=== PATIENT | female | born 1950 | race Caucasian/White ===

== ENCOUNTER 2023-04-28 13:16 | Outpatient (AMB) | payer MEDICARE, SELFPAY ==
[2023-04-28 13:22] VITALS: BP 144/78; PULSE 70; O2SAT 99; BMI 27.1
--- NOTE | 2023-04-28 13:22 | MHC.OFFVIS ---
Intake Vital Signs 04/28/23 13:22 Height 5 ft 1 in Weight 143 lb 4.807 oz BMI 27.1 BP 144/78 H Blood Pressure Location Rt brachial Position Sitting Pulse 70 Pulse Source Pulse Oximeter Pulse Oximetry (%) 99 Oxygen Delivery Method Room Air Intake Visit Reasons: ILD Allergies acetaminophen [From Percocet] Adverse Reaction (Verified 04/28/23 13:28) Vomiting oxycodone [From Percocet] Adverse Reaction (Verified 04/28/23 13:28) Vomiting Sulfur Adverse Reaction (Uncoded 04/28/23 13:28) Hives HPI HPI Comments History of Present Illness Details The patient is here for pulmonary evaluation. The patient is a 72 year woman with a known history tobacco dependency was being evaluated for underlying respiratory disease. She had undergoing a CT scan of the chest back in 2021 at [facility] which I personally reviewed. It demonstrated multiple pulmonary nodules subsided nature. The patient also had some subpleural interstitial changes suggesting some mild interstitial lung disease. For respiratory status the patient has been doing fairly well. She does not use any inhalers. The patient does have mild dyspnea on exertion. Does get better with rest. She did undergo pulmonary function studies in the fall of 2022 which I personally reviewed further. The patient does not have evidence of COPD, although, appears to have an obstructive physiology and evidence of air trapping. The patient has used inhalers in the past specially when she was sick and explained to her that during those locations she may indeed developing increasing bronchospasms. Brovana the patient is doing fairly well and does not want to use any inhalers. She did show me her fit bit report. Her heart rate has been significantly elevated while sleeping. Sometimes going up to the 120s and 130s while sleeping at nighttime she does have daytime drowsiness with an [place] score elevated at 10 over 24. the patient has never had any evaluation for sleep apnea. She is scheduled to see a asphalt patcher. At this point I do believe that based on her ongoing symptoms that she should have a home sleep study. [facility] Medical History (Updated 04/28/23 @ 21:02 by Salomon Burger MD) ILD (interstitial lung disease) Palpitations Pulmonary nodule Review of Systems Const Reports daytime sleepiness, Reports difficulty sleeping, Denies fever(s), Reports headache(s) and Reports snoring Eyes Reports no additional complaints ENT Reports no additional complaints and Reports headache(s) Card Denies chest pain, Reports palpitations and Reports dyspnea on exertion Resp Reports dyspnea on exertion, Reports snoring and Denies wheezing GI Reports no additional complaints Musc Reports no additional complaints Skin/Breast Denies rash Neuro Reports no additional complaints and Reports headache(s) Endo Reports palpitations [place]/Lymph Denies easy bruising and Denies lymphadenopathy Aller/Immun Denies wheezing Physical Exam Vital Signs: Last Vital Signs Pulse 70 04/28/23 13:22 BP 144/78 H 04/28/23 13:22 Pulse Ox 99 04/28/23 13:22 Oxygen Delivery Method Room Air 04/28/23 13:22 BMI result Body Mass Index 27.1 Const General: comfortable HEENT Head: Yes normocephalic Neck Neck: Yes supple Chest Chest palpation & inspection: normal inspection of the chest Resp Effort & Inspection: normal respiratory effort Auscultation: clear to auscultation bilaterally Cardio Heart sounds: S1 normal heart sound present and S2 normal heart sound present GI Palpation (GI): Soft to palpation Skin General skin exam: no rashes or lesions noted Extrem General: Yes no clubbing, cyanosis or edema Assessment & Plan Assessment & Plan (1) Pulmonary nodule: Comment: high risk due to smoking history Code(s): R91.1 - Solitary pulmonary nodule (2) Palpitations: Code(s): R00.2 - Palpitations (3) ENRIQUE (obstructive sleep apnea): Code(s): G47.33 - Obstructive sleep apnea (adult) (pediatric) (4) ILD (interstitial lung disease): Code(s): J84.9 - Interstitial pulmonary disease, unspecified Plan Repeat CT chest home PSG F/U 2-3 months Coding Level of Care Code New Pt Level 4 (22589) Diagnoses Pulmonary nodule R91.1 Palpitations R00.2 ENRIQUE (obstructive sleep apnea) G47.33 ILD (interstitial lung disease) J84.9 Time Spent (min) 40
== END 2023-04-28 14:02 | disposition home or self-care (01) ==
PROVIDERS: PCP Internal Medicine; Visit Provider Hospitalist
DX: R91.1 Solitary pulmonary nodule (principal); R00.2 Palpitations; G47.33 Obstructive sleep apnea (adult) (pediatric); J84.9 Interstitial pulmonary disease, unspecified
CPT/HCPCS: 99204

== ENCOUNTER → 2023-04-28 13:16 | Outpatient (BNVA) | payer MEDICARE, SELFPAY | PROVIDERS: PCP Internal Medicine; Visit Provider Hospitalist | DX: R91.1 Solitary pulmonary nodule (principal); R00.2 Palpitations; G47.33 Obstructive sleep apnea (adult) (pediatric); J84.9 Interstitial pulmonary disease, unspecified | CPT/HCPCS: 99202 ==

== ENCOUNTER 2023-06-12 13:44 | Outpatient (AMB) | payer MEDICARE, SELFPAY ==
--- NOTE | 2023-06-12 13:54 | A.OFFVIS_ITS ---
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/ Transferring care/Blockage Artery Intake Note: New patient hx blockage artery transferring feeling good Triage Assistant Required: No Wireless Sales Consultant: Wireless Sales Consultant Present Accompanied by: Spouse Allergies acetaminophen [From Percocet] Adverse Reaction (Verified 04/28/23 13:28) Vomiting oxycodone [From Percocet] Adverse Reaction (Verified 04/28/23 13:28) Vomiting Sulfur Adverse Reaction (Uncoded 04/28/23 13:28) Hives Medication List - Last Reconciled 06/12/23 by Cal Farooq MD alendronate 70 mg PO QWEEK alprazolam 0.25 mg PO DAILY amlodipine 5 mg PO DAILY aspirin (Yoli Chewable Low Dose Aspirin) 81 mg PO DAILY atorvastatin 20 mg PO BEDTIME omeprazole 20 mg PO DAILY spironolactone 50 mg PO DAILY HPI HPI Comments History of Present Illness Details Ginger comes for a 2nd opinion for management of coronary artery disease. She is a pleasant 72-year-old woman with prior history of hypertension, hyperlipidemia, sleep apnea and mild emphysema as per her recently told by Pulmonary. Patient had undergone a CT scan for pulmonary disease which showed dense calcification the coronary arteries. She then saw a mergers and acquisitions consultant who subsequently referred her for a stress echocardiogram. This was negative at high workload for any evidence of myocardial ischemia. She had no symptoms. She continues to remain very active. She is lot of question about the coronary artery disease and thought that she heard somebody mentioned that she had a 90% stenosis. She denies any exertional chest pain or shortness of breath. She remains fairly active. Denies any heart failure symptoms. Denies any prolonged palpitations or irregular heartbeat. Denies any lightheadedness, syncope. Now has been taking her atorvastatin more religiously on a daily basis. Takes all other medications regularly. [facility] Medical History CAD (coronary artery disease) ILD (interstitial lung disease) Palpitations Pulmonary nodule Review of Systems Const Denies chills, Denies daytime sleepiness, Denies fatigue, Denies fever(s), Denies frequent falls, Denies poor appetite, Denies snoring, Denies stops breathing during sleep, Denies weakness, Denies weight gain and Denies weight loss Eyes Denies loss of vision ENT Denies dizziness and Denies hearing loss Card Denies chest pain, Denies claudication, Denies leg edema, Denies lightheadedness, Denies palpitations, Denies dyspnea, Denies dyspnea on exertion and Denies orthopnea Resp Denies cough, Denies excessive phlegm production, Denies dyspnea, Denies dyspnea on exertion, Denies snoring and Denies wheezing GI Denies abdominal pain, Denies hematochezia, Denies change in bowel habits, Denies nausea and Denies vomiting Denies urinary frequency and Denies dysuria Musc Denies arthralgias, Denies muscle weakness, Denies numbness and Denies other (frequent falls) Skin/Breast Denies nail changes and Denies rash Neuro Denies Abnormal speech present, Denies dizziness, Denies frequent falls, Denies loss of vision, Denies memory loss, Denies numbness and Denies weakness Psych Denies depression and Denies memory loss Endo Denies fatigue and Denies palpitations Osvaldo/Lymph Reports easy bruising and Reports other (anemia) Aller/Immun Denies wheezing Physical Exam Vital Signs: Last Vital Signs Pulse 67 06/12/23 13:58 BP 124/84 06/12/23 13:58 BMI result Body Mass Index 27.1 Const General: cooperative, comfortable, no acute distress, alert, awake and Physically active Nutritional Appearance: average body habitus Orientation/consciousness: patient oriented x3 Limitations: no limitations HEENT Head: Yes normocephalic and Yes atraumatic Neck Neck: Yes trachea midline, Yes supple and Yes no JVD Resp Effort & Inspection: normal respiratory effort Auscultation: clear to auscultation bilaterally Cardio Jugular venous distension: no JVD Palpation: normal PMI Rate: regular rate Rhythm: regular rhythm Heart sounds: S1 normal heart sound present, S2 normal heart sound present, no click, no gallops, no murmurs and no rubs GI Auscultation: normal bowel sounds Skin General skin exam: no rashes or lesions noted Neuro General: patient oriented x3 and no focal motor deficits Speech: No Abnormal speech present Extrem General: Yes no clubbing, cyanosis or edema Psych Appearance: grossly normal Office Procedures EKG Details: EKG shows normal sinus rhythm with poor R-wave progression most likely lead placement with low-voltage QRS [id number], Complete Assessment & Plan Assessment & Plan (1) CAD (coronary artery disease): Comment: Dense calcification on CT scan of chest done for lung issues Code(s): I25.10 - Atherosclerotic heart disease of [place] coronary artery without angina pectoris Plan: CAD based on the findings of dense calcification the coronary tree on CT chest. Patient has negative stress test at reasonably high workload with negative stress echocardiogram suggesting that her coronary artery disease nonobstructive. She continues to remain asymptomatic at high workload. Management of coronary atherosclerosis was discussed. Importance of compliance with medication was discussed. Agree with low-dose aspirin therapy for secondary prevention. Aggressive control blood pressure was also discussed. Blood pressure is currently well optimized advised to monitor blood pressure at home maintain a log. Goal blood pressure less than 130/84. Low-salt diet was discussed. Continue CPAP therapy. She is encouraged to continue to participate in physical activity as tolerated. She is currently on statin therapy 20 mg, advised to follow-up lipid panel in near future. Her LDL is well optimized at around 60 mg/dL. No change in therapy would be considered. She is educated as to the pathophysiology of atherosclerosis and goal for medical therapy including prevention of progressive atherosclerotic disease and/or acute coronary syndrome. She understands agrees. She is advised to call me with any new symptoms. Will follow up in the clinic in 1 year's time, sooner p.r.n.. Thank you for allowing me to partake in the care Orders: Orders Lipid Panel Today I25.10 - Atherosclerotic heart disease of [place] coronary artery without angina pectoris Coding Level of Care Code New Pt Level 4 (03040) Diagnoses CAD (coronary artery disease) I25.10 CPT Codes EKG - CPT: 70995-[id number], Complete ([id number])
[2023-06-12 13:58] VITALS: BP 124/84; PULSE 67; BMI 27.1
== END 2023-06-12 14:40 | disposition home or self-care (01) ==
PROVIDERS: PCP Internal Medicine; Visit Provider Internal Medicine Cardiovascular Disease
DX: I25.10 Atherosclerotic heart disease of native coronary artery without angina pectoris (principal)
CPT/HCPCS: 93010; 99204

== ENCOUNTER → 2023-06-12 13:44 | Outpatient (BNVA) | payer MEDICARE, SELFPAY | PROVIDERS: PCP Internal Medicine; Visit Provider Internal Medicine Cardiovascular Disease | DX: I25.10 Atherosclerotic heart disease of native coronary artery without angina pectoris (principal) | CPT/HCPCS: 93005; 99202 ==

== ENCOUNTER 2023-06-23 09:07 | Outpatient (REF) | payer MEDICARE, SELFPAY ==
[2023-06-23 12:00] LABS: Cholesterol 144 mg/dL (<200); HDL Cholesterol 59 mg/dL (>40); LDL Cholesterol Calculated 75 mg/dL (<100); Triglycerides 53 mg/dL (<150)
== END 2023-06-23 09:08 | disposition home or self-care (01) ==
LOC: HO.WFDLDS 09:07
PROVIDERS: Visit Provider Internal Medicine Cardiovascular Disease
DX: I25.10 Atherosclerotic heart disease of native coronary artery without angina pectoris (principal)
CPT/HCPCS: 36415; 80061

== ENCOUNTER 2023-06-27 13:34 | Outpatient (REF) | payer MEDICARE, SELFPAY ==
--- NOTE | ~2023-06-27 | CT_ITS ---
EXAMINATION: CT CHEST WITHOUT CONTRAST CLINICAL INFORMATION: Pulmonary nodule. Interstitial pulmonary disease. COMPARISON: None available. TECHNIQUE: Multidetector volumetric CT imaging of the chest was done. Axial MIP volume rendering provided. Sagittal and coronal reformatted images were obtained. This CT examination was performed using dose optimization techniques as appropriate, variously including the following: *Automated exposure control *Adjustment of mA and/or kV according to patient size (this includes techniques or standardized protocols for targeted exams where dose is matched to indication/reason for exam; i.e. extremities or head) *Use of iterative reconstruction technique DLP: 250 mGy-cm FINDINGS: Central airways are patent. Lungs are well aerated. Mild emphysematous changes are present. There is no lobar consolidation. No pleural effusion or pneumothorax. A few tiny 1 to 3 mm calcified and noncalcified pulmonary micronodules are present. No suspicious pulmonary nodules identified. The heart is normal in size. Coronary artery calcifications are present. There is no pericardial effusion. Normal caliber thoracic aorta. No gross mediastinal or hilar lymphadenopathy appreciated on today's noncontrast imaging. No pathologically enlarged axillary lymph nodes. Visualized portions of the upper abdomen demonstrate a small hiatal hernia. Moderate diffuse degenerative changes of the spine. CT/CT chest wo IV con IMPRESSION: 1. Mild emphysema. 2. A few tiny 1 to 3 mm calcified and noncalcified pulmonary micronodules are present. No suspicious pulmonary nodules identified. Fleischner guidelines were followed.
== END 2023-06-27 13:35 | disposition home or self-care (01) ==
LOC: HO.CT 13:34
PROVIDERS: PCP Internal Medicine; Visit Provider Hospitalist
DX: R91.1 Solitary pulmonary nodule (principal); J84.9 Interstitial pulmonary disease, unspecified
CPT/HCPCS: 71250

== ENCOUNTER → 2023-07-10 12:51 | Outpatient (REF) | payer MEDICARE, SELFPAY | LOC: HO.SL 12:51 | PROVIDERS: PCP Internal Medicine; Visit Provider Hospitalist | DX: G47.33 Obstructive sleep apnea (adult) (pediatric) (principal) | CPT/HCPCS: 95806 ==

== ENCOUNTER → 2023-07-10 13:02 | Outpatient (BNV) | payer MEDICARE, SELFPAY | PROVIDERS: PCP Internal Medicine; Visit Provider Internal Medicine | DX: R06.83 Snoring (principal) | CPT/HCPCS: 95806 ==

== ENCOUNTER 2023-07-18 13:00 | Outpatient (AMB) | payer MEDICARE, SELFPAY ==
--- NOTE | 2023-07-18 13:05 | MHC.OFFVIS ---
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 She had undergoing a CT scan of the chest back in 2021 at [facility] which I personally reviewed. It demonstrated multiple pulmonary nodules subsided nature. The patient also had some subpleural interstitial changes suggesting some mild interstitial lung disease. For respiratory status the patient has been doing fairly well. She does not use any inhalers. The patient does have mild dyspnea on exertion. Does get better with rest. She did undergo pulmonary function studies in the fall of 2022 which I personally reviewed further. The patient does not have evidence of COPD, although, appears to have an obstructive physiology and evidence of air trapping. The patient has used inhalers in the past specially when she was sick and explained to her that during those locations she may indeed developing increasing bronchospasms. Brovana the patient is doing fairly well and does not want to use any inhalers. She did show me her fit bit report. Her heart rate has been significantly elevated while sleeping. Sometimes going up to the 120s and 130s while sleeping at nighttime she does have daytime drowsiness with an [place] score elevated at 10 over 24. the patient has never had any evaluation for sleep apnea. She is scheduled to see a drug safety data management specialist. At this point I do believe that based on her ongoing symptoms that she should have a home sleep study. 07/18/2023 the patient is here for a pulmonary follow-up visit. Overall the patient is doing okay. Has a worsening cough with nasal congestion and postnasal drip. She likes allergies going to the spring now. Moderate severity. Has been using [id number] antihistamines with partial improvement of the symptoms. Although his expensive. The patient also continues to have some degree of daytime drowsiness. Her [place] scores 8/24. She does have snoring. The patient did have an in-lab sleep study which we did review. No evidence of any significant sleep apnea. Oxygen stable. She did have some snoring. Although not pathological. She can consider talking to her dentist about an oral appliance. In addition to that she can try positional therapy sleeping on her side. She also had a CT scan of the chest which we personally reviewed. Does have some mild emphysema. No evidence of any interstitial lung disease which is reassuring. She does have small pulmonary nodules that will need follow-up. Ideally in a year's time. [facility] Medical History (Updated 07/21/23 @ 20:46 by Salomon Burger MD) Chronic allergic rhinitis CAD (coronary artery disease) ILD (interstitial lung disease) Palpitations Pulmonary nodule Social History (Updated 07/18/23 @ 13:08 by ENDY Villela) Patient Tobacco Use Status: Former Tobacco user Tobacco use type: Cigarette Years Smoked: 20 Years Review of Systems Const Reports daytime sleepiness, Reports difficulty sleeping, Denies fever(s) and Reports snoring Eyes Reports no additional complaints ENT Reports no additional complaints Card Denies chest pain, Reports palpitations and Reports dyspnea on exertion Resp Reports dyspnea on exertion, Reports snoring and Denies wheezing GI Reports no additional complaints Musc Reports no additional complaints Skin/Breast Denies rash Neuro Reports no additional complaints Endo Reports palpitations Osvaldo/Lymph Denies easy bruising and Denies lymphadenopathy Aller/Immun Denies wheezing Physical Exam Vital Signs: Last Vital Signs Pulse 64 07/18/23 13:06 Pulse Ox 97 07/18/23 13:06 Oxygen Delivery Method Room Air 07/18/23 13:06 BMI result Body Mass Index 27.1 Const General: comfortable HEENT Head: Yes normocephalic Neck Neck: Yes supple Chest Chest palpation & inspection: normal inspection of the chest Resp Effort & Inspection: normal respiratory effort Auscultation: clear to auscultation bilaterally Cardio Heart sounds: S1 normal heart sound present and S2 normal heart sound present GI Palpation (GI): Soft to palpation Skin General skin exam: no rashes or lesions noted Extrem General: Yes no clubbing, cyanosis or edema Results Reviewed Results Reviewed: [address] [address] [address] Scan Report Signed Patient: Ginger Stephens#: [id number] : 1950 Acct:[id number] Age/Sex: 72 / F ADM Date: 06/27/23 Loc: HO.CT Attending Dr: Salomon Burger MD Ordering Physician: Salomon Burger MD Date of Service: 06/27/23 Procedure(s): CT chest wo IV con Accession Number(s): [id number] cc: CHENCHO TY MD; Salomon Burger MD~ EXAMINATION: CT CHEST WITHOUT CONTRAST CLINICAL INFORMATION: Pulmonary nodule. Interstitial pulmonary disease. COMPARISON: None available. TECHNIQUE: Multidetector volumetric CT imaging of the chest was done. Axial MIP volume rendering provided. Sagittal and coronal reformatted images were obtained. This CT examination was performed using dose optimization techniques as appropriate, variously including the following: *Automated exposure control *Adjustment of mA and/or kV according to patient size (this includes techniques or standardized protocols for targeted exams where dose is matched to indication/reason for exam; i.e. extremities or head) *Use of iterative reconstruction technique DLP: 250 mGy-cm FINDINGS: Central airways are patent. Lungs are well aerated. Mild emphysematous changes are present. There is no lobar consolidation. No pleural effusion or pneumothorax. A few tiny 1 to 3 mm calcified and noncalcified pulmonary micronodules are present. No suspicious pulmonary nodules identified. The heart is normal in size. Coronary artery calcifications are present. There is no pericardial effusion. Normal caliber thoracic aorta. No gross mediastinal or hilar lymphadenopathy appreciated on today's noncontrast imaging. No pathologically enlarged axillary lymph nodes. Visualized portions of the upper abdomen demonstrate a small hiatal hernia. Moderate diffuse degenerative changes of the spine. CT/CT chest wo IV con IMPRESSION: 1. Mild emphysema. 2. A few tiny 1 to 3 mm calcified and noncalcified pulmonary micronodules are present. No suspicious pulmonary nodules identified. Fleischner guidelines were followed. Dictated By: Tyrone Scherer MD Signed By: <Electronically signed by Tyrone Scherer MD in OV> 07/04/23 1043 DD/ 1412 TD/TT: Counterperson: PD Assessment & Plan Assessment & Plan (1) Pulmonary nodule: Comment: high risk due to smoking history Code(s): R91.1 - Solitary pulmonary nodule (2) Palpitations: Code(s): R00.2 - Palpitations (3) ILD (interstitial lung disease): Comment: CT chest is reassuring Code(s): J84.9 - Interstitial pulmonary disease, unspecified (4) Chronic allergic rhinitis: Code(s): J30.9 - Allergic rhinitis, unspecified Plan Repeat CT chest 1 yr continue Zara start fluticasone nasal sray F/U 6 months Medications: New fluticasone propionate 50 mcg/actuation (Flonase Allergy Relief) administer into each nostril 2 sprays intranasal DAILY 30 days 15.8 mL 12RF fexofenadine (Zara Allergy) 180 mg PO DAILY 30 days 30 tabs 6RF Coding Level of Care Code Est Pt Level 4 (61710) Diagnoses Pulmonary nodule R91.1 Palpitations R00.2 ILD (interstitial lung disease) J84.9 Chronic allergic rhinitis J30.9 Time Spent (min) 17
[2023-07-18 13:06] VITALS: PULSE 64; O2SAT 97; BMI 27.1
== END 2023-07-18 13:35 | disposition home or self-care (01) ==
PROVIDERS: PCP Internal Medicine; Visit Provider Hospitalist
DX: R91.1 Solitary pulmonary nodule (principal); R00.2 Palpitations; J84.9 Interstitial pulmonary disease, unspecified; J30.9 Allergic rhinitis, unspecified
CPT/HCPCS: 99214

== ENCOUNTER → 2023-07-18 13:00 | Outpatient (BNVA) | payer MEDICARE, SELFPAY | PROVIDERS: PCP Internal Medicine; Visit Provider Hospitalist | DX: R91.1 Solitary pulmonary nodule (principal); R00.2 Palpitations; J84.9 Interstitial pulmonary disease, unspecified; J30.9 Allergic rhinitis, unspecified | CPT/HCPCS: 99212 ==

== ENCOUNTER 2023-09-26 08:56 | Outpatient (REF) | payer MEDICARE, SELFPAY ==
[2023-09-26 11:58] LABS: Cholesterol 143 mg/dL (<200); HDL Cholesterol 56 mg/dL (>40); LDL Cholesterol Calculated 77 mg/dL (<100); Triglycerides 54 mg/dL (<150)
== END 2023-09-26 08:57 | disposition home or self-care (01) ==
LOC: HO.WFDLDS 08:56
PROVIDERS: Visit Provider Internal Medicine Cardiovascular Disease
DX: I25.10 Atherosclerotic heart disease of native coronary artery without angina pectoris (principal)
CPT/HCPCS: 36415; 80061

== ENCOUNTER 2024-07-09 13:39 | Outpatient (REF) | payer MEDICARE, SELFPAY ==
--- NOTE | ~2024-07-09 | CT_ITS ---
EXAMINATION: CT CHEST WITHOUT CONTRAST CLINICAL INFORMATION: Solitary pulmonary nodule. COMPARISON: June 27, 2023. TECHNIQUE: Multidetector volumetric CT imaging of the chest was done. Axial MIP volume rendering provided. Sagittal and coronal reformatted images were obtained. This CT examination was performed using dose optimization techniques as appropriate, variously including the following: *Automated exposure control *Adjustment of mA and/or kV according to patient size (this includes techniques or standardized protocols for targeted exams where dose is matched to indication/reason for exam; i.e. extremities or head) *Use of iterative reconstruction technique DLP: 116 mGy centimeter. 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 Calcified plaque thoracic aortic arch. Patient's large body habitus. LUNGS: 2 mm calcified pulmonary nodule in the periphery of the right lower lung lobe. There are a few less than 1 mm noncalcified pulmonary nodules seen in the periphery of the lower lung lobes and right upper lobe. Minimal paraseptal emphysematous changes in the upper lung lobes. No bronchiectasis. No gross honeycombing. Respiratory airways patent. MEDIASTINUM: No lymphadenopathy. Calcified plaques throughout the thoracic aorta and the origin of its main branches. No pericardial effusion. Heart is not enlarged. CORONARY ARTERY CALCIFICATION: Calcified plaques throughout the coronary arteries. PLEURA: No pleural effusion. No pneumothorax. AXILLA: No lymphadenopathy. UPPER ABDOMEN: Calcified plaque splenic artery abdominal aorta wall. Mild soft tissue fullness in the adrenal glands without nodular components. OSSEOUS STRUCTURES: Multilevel spondylosis. S-shaped curvature, mild. No acute fracture or listhesis. No lytic or blastic lesions. CT/CT chest wo IV con IMPRESSION: Probable small tiny granulomata. Paraseptal emphysematous changes. Coronary artery disease and atherosclerosis disease. Fleischner guidelines were followed. Electronically signed by: Anibal Hansen MD 07/09/2024 03:38 PM EDT
== END 2024-07-09 13:40 | disposition home or self-care (01) ==
LOC: HO.CT 13:39
PROVIDERS: PCP Internal Medicine; Visit Provider Hospitalist
DX: R91.1 Solitary pulmonary nodule (principal)
CPT/HCPCS: 71250

== ENCOUNTER → 2024-07-09 13:41 | Outpatient (BNV) | payer MEDICARE, SELFPAY | PROVIDERS: PCP Internal Medicine; Visit Provider Radiology Diagnostic Radiology | DX: R91.1 Solitary pulmonary nodule (principal) | CPT/HCPCS: 71250 ==

== ENCOUNTER 2024-07-13 13:19 | Outpatient (AMB) | payer MEDICARE, SELFPAY ==
[2024-07-13 13:25] VITALS: BP 120/70; PULSE 75; BMI 27.9
--- NOTE | 2024-07-13 13:25 | MHC.OFFVIS ---
Vital Signs 07/13/24 13:25 Height 5 ft 1 in Weight 147 lb 11.355 oz BMI 27.9 BP 120/70 Blood Pressure Location Lt brachial Position Sitting Pulse 75 Intake Visit Reasons: 1 Yr follow up (NS) Intake Note: 1 year follow-up with ekg heart feeling good Styrene Dehydration Reactor Operator Required: No Allergies acetaminophen [From Percocet] Adverse Reaction (Verified 07/18/23 13:07) Vomiting oxycodone [From Percocet] Adverse Reaction (Verified 07/18/23 13:07) Vomiting Sulfur Adverse Reaction (Uncoded 07/18/23 13:07) Hives Medication List - Last Reconciled 07/13/24 by Cal Farooq MD alprazolam 0.25 mg PO DAILY PRN amlodipine 5 mg PO DAILY aspirin (Yoli Chewable Low Dose Aspirin) 81 mg PO DAILY atorvastatin 40 mg PO BEDTIME ezetimibe 10 mg PO .everyother fexofenadine (Zara Allergy) 180 mg PO DAILY PRN fluticasone propionate 50 mcg/actuation (Flonase Allergy Relief) 2 sprays intranasal DAILY 30 days omeprazole 20 mg PO DAILY spironolactone 50 mg PO DAILY HPI Comments Details: Ginger comes for follow-up. She had a fall in March and hurt her left hip and was told on MRI that she has a tendon rupture. She has been limited with exercise because of that. Otherwise prior to that she was pretty functional active and has no exertional chest pain or shortness of breath. She maintains activity level as tolerated. Taking all her medications. She cut down her ezetimibe to every other day due to cramps. He has not had a repeat lipid panel. Denies any heart failure symptoms. Denies any lightheadedness, syncope. No prolonged palpitation irregular heartbeat. [facility] Medical History Chronic allergic rhinitis CAD (coronary artery disease) ILD (interstitial lung disease) Palpitations Pulmonary nodule Social History Patient Tobacco Use Status: Former Tobacco user Tobacco use type: Cigarette Years Smoked: 20 Years Review of Systems Const Denies chills, Denies fatigue, Denies fever(s), Denies frequent falls, Denies weakness, Denies weight gain and Denies weight loss ENT Denies dizziness Card Denies chest pain, Denies leg edema, Denies lightheadedness, Denies palpitations, Denies dyspnea, Denies dyspnea on exertion, Denies orthopnea and Denies other (loss of consciousness) Resp Denies cough, Denies dyspnea and Denies dyspnea on exertion GI Denies hematochezia and Denies change in stool character Musc Denies abnormal gait, Denies muscle weakness, Denies numbness, Denies radiating pain into limb and Denies tingling Neuro Denies Abnormal speech present, Denies abnormal gait, Denies dizziness, Denies frequent falls, Denies numbness, Denies tingling and Denies weakness Endo Denies fatigue and Denies palpitations Physical Exam Vital Signs: Last Vital Signs Pulse 75 07/13/24 13:25 BP 120/70 07/13/24 13:25 BMI result Body Mass Index 27.9 Const General: cooperative, comfortable, no acute distress, alert, awake and Physically active Nutritional Appearance: average body habitus Orientation/consciousness: patient oriented x3 Limitations: no limitations HEENT Head: Yes normocephalic and Yes atraumatic Neck Neck: Yes trachea midline, Yes supple and Yes no JVD Resp Effort & Inspection: normal respiratory effort Auscultation: clear to auscultation bilaterally Cardio Jugular venous distension: no JVD Palpation: normal PMI Rate: regular rate Rhythm: regular rhythm Heart sounds: S1 normal heart sound present, S2 normal heart sound present, no click, no gallops, no murmurs and no rubs GI Auscultation: normal bowel sounds Skin General skin exam: no rashes or lesions noted Neuro General: patient oriented x3 and no focal motor deficits Speech: No Abnormal speech present Extrem General: Yes no clubbing, cyanosis or edema Psych Appearance: grossly normal Office Procedures EKG Details: EKG shows normal sinus rhythm with low-voltage QRS with poor R-wave progression most likely lead placement and body habitus 45513-[id number], Complete Assessment & Plan Assessment & Plan (1) CAD (coronary artery disease): Comment: Dense calcification on CT scan of chest done for lung issues Code(s): I25.10 - Atherosclerotic heart disease of [place] coronary artery without angina pectoris Category: Medical Plan: Stable CAD without any significant symptoms that suggest progressive myocardial ischemia. At this point time symptoms are stable and therefore requires no further workup. Continue aggressive risk factor modification. Goal LDL less than 60 mg/dL. Advised lipid panel in near future. Continue low-dose aspirin therapy. Continue aggressive blood pressure control, see below. Encouraged to maintain activity level as tolerated. (2) HTN (hypertension): Code(s): I10 - Essential (primary) hypertension Category: Medical Plan: Hypertension which is currently well optimized advised to monitor blood pressure at home maintain a log. Goal blood pressure less than 130/84. Low-salt diet was discussed. Advised to maintain aggressive lifestyle modification. Will follow up in the clinic in 1 year's time, sooner p.r.n.. Thank you for allowing me to partake in her care Orders: Orders Lipid Panel Today Cal Farooq MD I25.10 - Atherosclerotic heart disease of [place] coronary artery without angina pectoris Medications: Changed From ezetimibe 10 mg PO DAILY 90 tabs 3RF To ezetimibe 10 mg PO .everyother Cal Farooq MD From fexofenadine (Zara Allergy) 180 mg PO DAILY 30 days 30 tabs 6RF To fexofenadine (Zara Allergy) 180 mg PO DAILY PRN Salomon Burger MD Coding Level of Care Code Est Pt Level 4 (59528) Complex EM visit Add On G2211 Diagnoses CAD (coronary artery disease) I25.10 HTN (hypertension) I10 CPT Codes EKG - CPT: 28436-[id number], Complete ([id number])
--- OUTSIDE RECORDS SUMMARY | 2024-07-13 15:39 | XMS_ITS | Clinical Summary ---
Author Organization [facility] Address [address] [place] [address] Phone Care Team Providers Care Diazo Technician Name Role Phone Vivien Aceves MD Primary Care Provide r Allergies Active Allergy Reactions Criticality Noted Date Comments Codeine GI intolerance 10/09/2022 Lisinopril 10/09/2022 Other Nausea And Vomiting 03/23/2012 PredniSONE. Oxycodone-Acetaminophen GI intolerance,N ausea And Vomiting 03/23/2012 Vomiting Sulfur Hives High 10/10/2020 Medications alendronate (FOSAMAX) 70 mg tablet Take 70 mg by mouth every 7 days. Active calcium carbonate-vitami n D3 600 mg-20 mcg (800 unit) tablet Take 600 mg by mouth. Active omeprazole (PRILOSEC) 20 mg tablet,delayed release (DR/EC) Take 20 mg by mouth. Active spironolactone (ALDACTONE) 50 mg tablet Take 50 mg by mouth daily. Active amLODIPine (NORVASC) 5 mg tablet Take 1 tablet (5 mg total) by mouth 1 (one) time each day. Active ALPRAZolam (XANAX) 0.25 mg tablet Take 1 tablet (0.25 mg total) by mouth 1 (one) time each day if needed for anxiety. Max Daily Amount: 0.25 mg Active aspirin 81 mg EC tablet Take 1 tablet (81 mg total) by mouth daily. 10/27/2022 Active Prolia 60 mg/mL syringe syringe 11/17/2023 Act vanna ezetimibe (ZETIA) 10 mg tablet Take 1 tablet (10 mg total) by mouth 1 (one) time each day. 02/19/2024 Active penicillin v potassium (VEETID) 500 mg tablet 03/22/2024 Active atorvastatin (LIPITOR) 40 mg tablet Take 1 tablet (40 mg total) by mouth at bedtime. 03/20/2024 Active Active Problems Problem Noted Date Diagnosed Date High cholesterol 03/24/2024 Osteoporosis 03/24/2024 Brain tumor (benign) 03/24/2024 HTN (hypertension) 10/09/2022 Overview (03/24/2024): med managed Meningioma 10/09/2022 Overview (03/24/2024): noted on imaging for w/u of double vision - scheduled ENDOSCOPIC RESECTION ADENOMA PITUITARY, FAT GRAFTING with Dr Elver Wayne and Dr Hasmukh Orosco on 10/22/22. GERD (gastroesophageal reflux disease) Overview (03/24/2024): on ppi HLD (hyperlipidemia) 10/09/2022 Overview (03/24/2024): on statin Encounters Date Type Department Care Team Description 05/06/2024 3:30 PM EST Office Visit Orthopedic Surgery - [place] [address] [place] [phone] Huong Davalos NP Greater trochanteric pain syndrome of left lower extremity (Primary Dx); Primary osteoarthritis of right hip from Last 3 Months Surgical History Surgery Date Site/Laterality Comments TONSILLECTOMY ADENOIDECTOMY, BILATERAL MYRINGOTOMY AND TUBES PROCEDURE: [place] TONSILLECTOMY & ADENOIDECTOMY <AGE 10 APPENDECTOMY PROCEDURE: [place] APPENDECTOMY CHOLECYSTECTOMY PROCEDURE: [place] LAPAROSCOPY SURG CHOLECYSTECTOMY Medical History Medical History Date Comments Essential hypertension DX:Essent ial hypertension Hyperlipidemia DX:Hyperlipidemi a Esophageal reflux DX:Esophageal reflux Primary osteoarthritis of kn ees, bilateral DX:Primary osteoarthritis of knees, bilateral Social History Tobacco Use Types Packs/Day Years Used Date Smoking Tobacco: Never Smokeless Tobacco: Never Alcohol Use Standard Drinks/Week Comments Never 0 (1 standard drink = 0.6 oz pur e alcohol) Comments Unknown Sex and Gender Information Value Date Recorded Sex Assigned at Not on file Legal Sex Female 10:56 AM EST Gender Identity Not on file Sexual Orientation Not on file Obstetrics History Last Filed Vital Signs Vital Sign Reading Time Taken Comments Blood Pressure - - Pulse - - Temperature - - Respiratory Rate - - Oxygen Saturation - - Inhaled Oxygen Concentration - - Weight 66.2 kg (146 lb) 03/25/2024 9:48 AM EST Height 154.9 cm (5' 1 ) 03/25/2024 9:48 AM EST Body Mass Index 27.59 03/25/2024 9:48 AM EST Plan of Treatment Upcoming Encounters Date Type Department Care Team (Late st Contact Info) Description 08/18/2024 3:30 PM EDT Office Visit Orthopedic Surgery - [place] [address] [phone] Huong Davalos NP [address] [address] Health Maintenance Due Date Last Done Comments Diabetes: Annual GFR (Glomerular Filtration Rate) 1950 Diabetes: Annual Foot Exam 1958 Diabetes: Annual Retina Eye Exam 1958 Zoster Vaccines (1 of 2) 1998 Pneumococcal Vaccine: 50+ Years (2 of 2 - PPSV23) 12/21/2015 12/20/2014 Cholesterol Screening (Lipid Panel) 03/12/2022 Depression Screening 03/12/2022 Falls Risk Assessment 03/12/2022 Hepatitis C Screening 03/12/2022 Medicare Annual Wellness Visit 03/12/2022 Osteoporosis Screening (Bone Density Screening) 03/12/2022 Social Influencers of Health Screening 03/12/2022 COVID-19 Vaccine ( season) 2023 03/03/2021, 07/14/2020, 06/15/2020 Diabetes: Annual Urine Albumin-Creatinine Ratio (uACR) 03/24/2024 Diabetes: Blood Sugar Control Test (HGBA1C) 03/24/2024 Hypertension/CHF/CAD Annual BMP Blood Test 03/24/2024 DTaP,Tdap,and Td Vaccines (2 - Td or Tdap) 10/05/2030 10/05/2020 Breast Cancer Screening Discontinued 06/30/2018 RSV Immunization Patients 60+ Years Old Completed 02/07/2023 Influenza Vaccine Completed 01/31/2024, , 01/21/2022, Additional history exists HIB Vaccines Aged Out No longer eligi ble based on patient's age to complete this topic HPV Vaccines Aged Out No longer eligi ble based on patient's age to complete this topic Hepatitis A Vaccines Aged Out No long er eligible based on patient's age to complete this topic Hepatitis B Vaccines Aged Out No long er eligible based on patient's age to complete this topic IPV Vaccines Aged Out No longer eligi ble based on patient's age to complete this topic MMR Vaccines Aged Out No longer eligi ble based on patient's age to complete this topic Meningococcal ACWY Vaccine Aged Out N o longer eligible based on patient's age to complete this topic Meningococcal B Vacine Aged Out No lo nger eligible based on patient's age to complete this topic RSV Immunization Patients Under 20 months Aged Out No longer eligible based on patient's age to complete this topic Varicella Vaccines Aged Out No longer eligible based on patient's age to complete this topic Insurance [employer] Care Teams Diazo Technician Relationship Specialty Start Date End Date Vivien Aceves MD [address] [place], [place] [address]arianne Corea [place] PCP - General Internal Medicine 10/10/20
--- OUTSIDE RECORDS SUMMARY | 2024-07-13 15:39 | XMS_ITS | Continuity of Care Document ---
Author Organization [facility] ter Address [address] [place] [address]- Care Team Providers Care Putty Mixer And Applier Name Role Phone Ketan PRINCE, [facility] Primary Care Physici an Encounter 07/11/24 - 07/12/[address] [address]- Attending Physician: Not on Staff, Attending MD Referring Physician: Not on Staff, Referring MD Encounter Type: SMRI Allergies, Adverse Reactions, Alerts Substance Criticality Severity Reaction Reaction Severity Status sulfamethoxazole-trimetho prim <not entered> Active lisinopril <not entered> Activ e sulfa drugs Active Percocet 7.5/325 Act vanna Immunizations Given and Recorded Vaccine Date Status Refusal Reason influenza virus vaccine, inactivated 01/31/24 Leonard rded influenza virus vaccine, inactivated 12/30/22 Leonard rded influenza virus vaccine, inactivated 01/21/22 Leonard rded influenza virus vaccine, inactivated 02/01/21 Leonard rded influenza virus vaccine, inactivated 12/26/19 Leonard rded influenza virus vaccine, inactivated 12/30/16 Leonard rded RSV vaccine preF3, recombinant 02/07/23 Recorded SARS-CoV-2 (COVID-19) mRNA-1273 vaccine 03/03/21 R ecorded SARS-CoV-2 (COVID-19) mRNA-1273 vaccine 07/14/20 R ecorded SARS-CoV-2 (COVID-19) mRNA-1273 vaccine 06/15/20 R ecorded tetanus/diphtheria/pertussis, acel(Tdap) 10/05/20 Given Influenza Virus Vaccine (oldterm) 02/17/19 Recorde d Influenza Virus Vaccine (oldterm) 01/20/18 Recorde d pneumococcal 13-valent vaccine 12/20/14 Recorded Problem List Condition Confirmation Course Effective Dates Status H ealth Status Informant Anxiety disorder Confirmed Active Coronary artery calcification seen on CT scan Confirmed Active Cervical lymphadenopathy Confirmed Active Contact dermatitis of hand Confirmed Active Diabetes mellitus with complication Confirmed Active Diplopia Confirmed Active Gastroesophageal reflux disease Confirmed Active Hyperlipidemia Confirmed Active Hypertensive disorder Confirmed Active ILD (interstitial lung disease) Confirmed Active 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 Osteoporosis Confirmed Active Situational stress Confirmed Active Results Radiology Reports * Exam Date Time Procedure Performing Provider Status 07/11/24 11:44 AM MRI Ext Lower W/O Contrast Left Auth (Verified) Notes: (MRI Ext Lower W/O Contrast Left) Reason For Exam: Lumbar radiculopathy, symptoms persist with conservative treatment;Lumbar radiculopathy, symptoms persist with conservative treatment RESULT: MRI Ext Lower W/O Contrast [facility] VISIT NUMBER :[id number] Patient Name: Clare Ba Date of : 1950 Date of Exam: 07-11-2024 Referring Physician: Alma Rosa Kaba [address] [place] [address] Exam: MR Hip Unilat (C-) CPT 55097 - Left Room Description: [facility] 3T MRI LEFT HIP HISTORY: Pain FINDINGS: Bladder wall thickening. No evidence of fracture, AVN or marrow edema. Partial tearing, tendinopathy and peritendinous edema at the gluteus medius and minimus tendon insertions. Mild tendinopathy and peritendinous edema at the hamstring tendon origin. Mild left hip osteoarthritis with diffuse anterior-superior, superior and posterior-superior chondrolabral degeneration. Small subchondral cysts within the anterior aspect of the acetabular roof. Small left hip osteophytes. 0.8 cm nonossified loose body in the anterior aspect of the left hip joint on image 17 of series 8. IMPRESSION: Mild left hip osteoarthritis is detailed above. Partial tearing, tendinopathy and peritendinous edema at the gluteus medius and minimus tendon insertions. Mild tendinopathy and peritendinous edema at the hamstring tendon origin. Nonspecific bladder wall thickening. Some of the bladder wall thickening could be due to limited bladder distention. Correlation with urinalysis and direct inspection may be considered on clinical basis. Electronically Signed By: Louis Vora MD Dictated By: Not on Staff , AYAZ PRINCE Dictated Date/Time: 07/12/24 4:58 pm Reviewed By: Not on Staff , AYAZ PRINCE Signed By: Not on Staff , AYAZ PRINCE Signed Date/Time: 07/12/24 4:58 pm Transcribed By: LORENZO Transcribed Date/Time: 07/12/24 4:58 pm Social History Social History Type Response Smoking Status Never (less than 100 in lifetime) entered on: 01/24/23 Sex Sex Representation Female (finding) Patient Care team information Care Team Personnel Name: Ford Campos Position: [facility] PCO Associate Professional Member Role: Lifetime Consulting Provider Address: [address] [place] [address]- [place] Telecom: Name: Vivien Aceves MD Position: [facility] Physician - Primary Care Member Role: PCP Address: [address] [place] [address] [place] [address] [place] Telecom: Care Team Related Persons Name: FORD BA Insurance Providers Guarantor name: CLARE BA Health Plan Information #: 1 Payer: [employer] Member Number: NA Policy Number: NA Group Number: NA
--- OUTSIDE RECORDS SUMMARY | 2024-07-13 15:39 | XMS_ITS | Patient Health Record ---
Author Organization [facility] Address [address] [place] [address] Care Team Providers Care Storage Garage Attendant Name Role Phone Ketan PRINCE, [facility] Primary Care Provide r Unavailable Black, Charmaine Unavailable [phone] Allergies Allergen (clinical drug ingredient) Drug/Non Drug Allergy documented on EMR Reaction Allergy Type Onset Date Status sulfamethoxazole / trimethoprim Bactrim Unknown Drug Allergy Active codeine Codeine Unknown Drug Allergy Active Reason For Referral No Information Medications Medication SIG (Take, Route, Frequency, Duration) Notes Start Date End Date Status Spironolactone 50 MG 1 tablet Orally Onc e a day for 30 day(s) Active Verapamil HCl ER 240 MG 1 tablet Orally Once a day for 30 day(s) Active Antibiotic UTI Active Caltrate 600+D3 600-800 MG-UNIT 1 tablet with a meal Orally Once a day for 30 day(s) Active Alendronate Sodium 70 MG 1 tablet 30 min utes before the first food, beverage or medicine of the day with plain water Orally for 30 day(s) Active Atorvastatin Calcium 20 MG 1 tablet Oral ly Once a day for 30 day(s) Active Omeprazole 20 MG 1 capsule 30 minutes before morning meal Orally Once a day for 30 day(s) Active Immunizations Vaccine Route Administration Date Status Comme nts COVID-19 Moderna Vaccine Unknown 06/23/2020 Administered Second Dose: 07/14/2020 Social History Tobacco Use: Social History Observation Description Date Details (start date - stop date) Former Smoker 08/22/2000 - NA Tobacco Use/Smoking Question Answer Notes Are you a: former smoker When did you start smoking? 08/22/2000 Additional Findings: Tobacco Non-User Ex-cigaret te smoker Alcohol Screen Question Answer Notes Did you have a drink containing alcohol in the p ast year? Yes How often did you have 6 or more drinks on one occasion in the past year? Weekly (3 points) Points 3 Interpretation Positive Tobacco use other than smoking: Question Answer Notes Are you an other tobacco user? No Problems Problem Type SNOMED Code ICD Code Onset Dates Problem Status W/U Status Risk Notes Problem Acquired hallux valgus (61939193) Hallux valgus (acquired), left foot (M20.12) Active confirmed Problem Acquired hallux valgus (60314056) Hallux valgus (acquired), right foot (M20.11) Active confirmed Problem Acquired hammer toe of right foot (3763509957340 105) Other hammer toe(s) (acquired), right foot (M20.41) Active confirmed Problem Acquired hammer toe of left foot (3888846533794 103) Other hammer toe(s) (acquired), left foot (M20.42) Active confirmed Plan Of Treatment Pending Test Test Name Order Date [id number] Destruction, 1-14 09/18/2020 61548- Removal of Foreign Body, Subcut 0 09/18/2020 Insurance Providers Payer Name Payer Address Payer Phone Subscriber Number Group Number Insured Name Patient Relationship to Insured Coverage Start Date Coverage End Date [employer] Medicare Preferred [address] [place] [phone] [id number] Ginger Stephens Self - patient is the insured Medical (General) History Medical History History ICD Code Back,Hip,and Knee pain Cataracts High blood pressure Osteoporosis Measles Surgical History Surgery Date(Month/Year) gall bladder 1979 section 1977,
== END 2024-07-13 13:55 | disposition home or self-care (01) ==
LOC: HO.HCS 13:19
PROVIDERS: PCP Internal Medicine; Visit Provider Internal Medicine Cardiovascular Disease
DX: I25.10 Atherosclerotic heart disease of native coronary artery without angina pectoris (principal); I10 Essential (primary) hypertension
CPT/HCPCS: 93010; 99214; G2211

== ENCOUNTER → 2024-07-13 13:19 | Outpatient (BNVA) | payer MEDICARE, SELFPAY | PROVIDERS: PCP Internal Medicine; Visit Provider Internal Medicine Cardiovascular Disease | DX: I25.10 Atherosclerotic heart disease of native coronary artery without angina pectoris (principal); I10 Essential (primary) hypertension | CPT/HCPCS: 93005; 99212 ==

== ENCOUNTER 2024-07-19 10:29 | Outpatient (REF) | payer MEDICARE, SELFPAY ==
--- OUTSIDE RECORDS SUMMARY | 2024-07-19 12:20 | XMS_ITS | Clinical Summary ---
Author Organization [facility] Address [address] [place] [address] Phone Care Team Providers Care Continuous Churn Buttermaker Name Role Phone Vivien Aceves MD Primary [...] PM EST Office Visit Orthopedic Surgery - [place] [address] [place] [phone] Huong Davalos NP Greater trochanteric pain syndrome of left lower extremity (Primary Dx); Primary osteoarthritis of left hip from Last 3 Months Surgical History Surgery Date Site/Laterality Comments TONSILLECTOMY ADENOIDECTOMY, BILATERAL MYRINGOTOMY AND TUBES PROCEDURE: [place] TONSILLECTOMY & ADENOIDECTOMY <AGE 10 APPENDECTOMY PROCEDURE: [place] APPENDECTOMY CHOLECYSTECTOMY PROCEDURE: [place] LAPAROSCOPY SURG CHOLECYSTECTOMY Medical History Medical History [...] Care Team (Late st Contact Info) Description 07/22/2024 10:30 AM EDT Office Visit Orthopedic Surgery [place] [address] [phone] Huong Davalos NP [address] [address] 08/18/2024 3:30 PM EDT Office Visit Orthopedic Surgery [place] [address] [phone] Huong Davalos NP [address] [address] Health Maintenance Due Date Last Done Comments Diabetes: Annual GFR (Glomerular Filtration Rate) 1950 Diabetes: Annual Foot Exam 1958 Zoster Vaccines (1 of 2) [...] 03/24/2024 Hypertension/CHF/CAD Annual BMP Blood Test 03/24/2024 Diabetes: Annual Retina Eye Exam 05/17/2025 05/17/2024 DTaP,Tdap,and Td Vaccines (2 - Td or Tdap) 10/05/2030 10/05/2020 Breast Cancer Screening Discontinued 06/30/2018 RSV Immunization Adult Patients Completed 02/07/2023 Influenza Vaccine Completed 01/31/2024, , [...] patient's age to complete [place] [id number] [employer] Care Teams Continuous Churn Buttermaker Relationship Specialty Start Date End Date Vivien Aceves MD [address] [place] [address] [place], [place] PCP - General Internal Medicine 10/10/20
--- OUTSIDE RECORDS SUMMARY | 2024-07-19 12:20 | XMS_ITS | Patient Health Record ---
Author Organization [facility] Address [address] [place] [address] Care Team Providers Care Candy Dipper Hand Name Role Phone Ketan PRINCE, [facility] Primary Care Provide r Unavailable Black, Charmaine Unavailable [phone] Allergies Allergen (clinical drug ingredient) Drug/Non Drug [...] Status Risk Notes Problem Acquired hallux valgus (20754115) Hallux valgus (acquired), left foot (M20.12) Active confirmed Problem Acquired hallux valgus (84713969) Hallux valgus (acquired), right foot (M20.11) Active confirmed Problem Acquired hammer toe of right foot (6271722665969 105) Other hammer toe(s) (acquired), right foot (M20.41) Active confirmed Problem Acquired hammer toe of left foot (1983304321808 103) Other hammer toe(s) (acquired), left foot (M20.42) Active confirmed Plan Of Treatment Pending Test Test Name Order Date [id number] Destruction, 1-14 09/18/2020 44855- Removal of Foreign Body, Subcut 0 09/18/2020 Insurance Providers Payer Name Payer Address Payer Phone Subscriber Number Group Number Insured Name Patient Relationship to Insured Coverage Start Date Coverage End Date [employer] Preferred [address] [place] [phone] [id number] Ginger Stephens Self - patient is the insured Medical (General) History Medical History History ICD Code Back,Hip,and Knee pain Cataracts High blood pressure Osteoporosis Measles Surgical History Surgery Date(Month/Year) gall bladder 1979 section 1977,
--- OUTSIDE RECORDS SUMMARY | 2024-07-19 12:20 | XMS_ITS | Encounter Summary ---
Author Organization [facility] Address [address] [place] [address] Care Team Providers Care Livestock Nutrition Territory Manager Name Role Phone Vivien Aceves MD Primary Care Provide r Reason for Referral * Consultation (Routine) - Pending Review Specialty Diagnoses / Procedures Referred By Shiva lees Referred To Contact Physical Therapy Diagnoses Greater trochanteric pain syndrome of left lower extremity Primary osteoarthritis of right hip Huong Davalos NP [address] [address] Phone: tel: fax: Referral ID Status Reason Start Date Expiration Date Visits Requested Visits Authorized [id number] Pending Review Specialty Services Required 05/06/2024 05/06/2025 1 1 Scheduling Instructions Patient to bring referral to [facility] [place] Reason for Visit * Reason Comments Pain Follow-up Encounter Details Date Type Department Care Team (Latest Contact Info) Description 05/06/2024 3:30 PM EST Office Visit Orthopedic Surgery - [place] [address] [address] Huong Davalos NP [address] [address] Greater trochanteric pain syndrome of left lower extremity (Primary Dx); Primary osteoarthritis of left hip Social History Tobacco Use Types Packs/Day Years Used Date Smoking Tobacco: Never Smokeless Tobacco: Never Alcohol Use Standard Drinks/Week Comments Never 0 (1 standard drink = 0.6 oz pur e alcohol) Comments Unknown Sex and Gender Information Value Date Recorded Sex Assigned at Not on file Legal Sex Female 10:56 AM EST Gender Identity Not on file Sexual Orientation Not on file documented as of this encounter Progress Notes * Huong Davalos NP - 05/06/2024 3:30 PM EST [facility] Date: 05/06/2024 Reason for visit: Follow-up left hip HPI: Ginger Stephens is a 73 y.o. year old female here today for follow-up of her left hip. She was last seen 03/24/2024 for evaluation of left lateral hip pain. She has been treated with a cortisone injection in the past with over a year of relief. We elected to repeat the injection at that time and unfortunately only provided her with about 1 month of positive effect. Over the last week she has been noticing pain returning to her lateral hip as well as newer symptom of pain through the groin. Denies any buckling through the hip. Denies any pain that radiates through her entire left leg, denies any numbness or tingling. Does have some mild low back pain. Continues to use Tylenol. ROS: 10 point ROS was reviewed with patient, pertinent positive and negative results are noted in the HPI. Exam: Brief repeat examination of the left hip, full extension of the left knee, mild tenderness lateral and anterior. There is some groin pain elicited with internal rotation of the hip. Mildly positive Stinchfield. Negative straight leg raise. Sensation circulation intact distally. Imaging: Date of Visit: 03/25/2024 Reason for visit: Left hip pain Views: A/P pelvis, A/P hip, Frog view left hip Comparison: 02/04/2022 Findings: On AP view there is mild narrowing through the superior aspect of the femoral acetabular joint with some osteophyte formation which appears mildly progressed from previous x-rays 02/04/2022. Small calcification seen adjacent to the greater trochanter. No fracture or other acute findings. Impression: Intact hip with mild degenerative changes. Assessment: 73-year-old female with left lateral hip pain. Minimal DJD on x-ray. Hypertension, hyperlipidemia, osteoporosis, meningioma, GERD. BMI 28. Plan: I reviewed my findings with the patient. She did have very good relief from lateral hip injection performed 03/24/2024, this has worn off over the last week and she is now reporting return of symptoms is also newer onset pain through the left groin. X-rays show mild DJD. I did discuss at her last office visit that next up would be formal PT, she is agreeable and referral was provided. Will have her follow-up in 10 weeks for clinical recheck. If groin pain has persisted, could consider diagnostic left hip intra-articular injection versus further imaging. She verbalizes agreement and understanding with this plan. Nayla Davalos NP [address] [address] W: [phone] F: [phone] Portions of this note were dictated utilizing the speech recognition software. Electronically Signed By: Huong Davalos NP 05/06/2024 3:27 PM EST Cosigned by Teodoro Wright MD at 05/06/2024 4:12 PM EST documented in this encounter Plan of Treatment Upcoming Encounters Date Type Department Care Team (Late st Contact Info) Description 07/22/2024 10:30 AM EDT Office Visit Orthopedic Surgery [address] [address] Huong Davalos NP [address] [address] 08/18/2024 3:30 PM EDT Office Visit Orthopedic Surgery [place] [address] [phone] Huong Davalos NP [address] [address] Scheduled Referrals Name Type Priority Associated Diagnoses Orde r Schedule Ambulatory referral to Physical Therapy and Athletic Training Outpatient Referral Routine Greater trochanteric pain syndrome of left lower extremity Primary osteoarthritis of left hip 1 Occurrences starting 05/06/2024 until 05/06/2025 documented as of this encounter Visit Diagnoses Diagnosis Greater trochanteric pain syndrome of left lower extremity- Primary Primary osteoarthritis of left hip documented in this encounter Care Teams Livestock Nutrition Territory Manager Relationship Specialty Start Date End Date Vivien Aceves MD [address] [place] [address] GERARD Corea PCP - General Internal Medicine 10/10/20 documented as of this encounter
[2024-07-19 14:18] LABS: Cholesterol 130 mg/dL (<200); HDL Cholesterol 58 mg/dL (>40); LDL Cholesterol Calculated 60 mg/dL (<100); Triglycerides 62 mg/dL (<150)
== END 2024-07-19 10:30 | disposition home or self-care (01) ==
LOC: HO.WFDLDS 10:29
PROVIDERS: Visit Provider Internal Medicine Cardiovascular Disease
DX: I25.10 Atherosclerotic heart disease of native coronary artery without angina pectoris (principal); I10 Essential (primary) hypertension
CPT/HCPCS: 36415; 80061

== ENCOUNTER 2024-08-06 12:51 | Outpatient (AMB) | payer MEDICARE, SELFPAY ==
[2024-08-06 12:54] VITALS: BP 134/62; PULSE 70; O2SAT 97; BMI 28.5
--- NOTE | 2024-08-06 12:54 | A.OFFVIS_ITS ---
Vital Signs 08/06/24 12:54 Height 5 ft 1 in Weight 151 lb 0.266 oz BMI 28.5 BP 134/62 Blood Pressure Location Lt brachial Position Sitting Pulse 70 Pulse Source Pulse Oximeter Pulse Oximetry (%) 97 Oxygen Delivery Method Room Air Intake Visit Reasons: 1 yr F/U ILD s/p CT Compliance Officer Required: No Accompanied by: Self / Same As Patient Allergies oxycodone [From Percocet] Adverse Reaction (Verified 08/06/24 12:59) Vomiting Sulfur Adverse Reaction (Uncoded 07/18/23 13:07) Hives HPI Comments Details: The patient is a 74 year woman with a known history tobacco dependency was being evaluated for underlying respiratory disease. She had undergoing a CT scan of the chest back in 2021 at [facility] which I personally reviewed. It demonstrated multiple pulmonary nodules subsided nature. The patient also had some subpleural interstitial changes suggesting some mild interstitial lung disease. For respiratory status the patient has been doing fairly well. She does not use any inhalers. The patient does have mild dyspnea on exertion. Does get better with rest. She did undergo pulmonary function studies in the fall of 2022 which I personally reviewed further. The patient does not have evidence of COPD, although, appears to have an obstructive p hysiology and evidence of air trapping. The patient has used inhalers in the past specially when she was sick and explained to her that during those locations she may indeed developing increasing bronchospasms. Brovana the patient is doing fairly well and does not want to use any inhalers. She did show me her fit bit report. Her heart rate has been significantly elevated while sleeping. Sometimes going up to the 120s and 130s while sleeping at nighttime she does have daytime drowsiness with an Pedro score elevated at 10 over 24. the patient has never had any evaluation for sleep apnea. She is scheduled to see a general studies program chair. At this point I do believe that based on her ongoing symptoms that she should have a home sleep study. 07/18/2023 the patient is here for a pulmonary follow-up visit. Overall the patient is doing okay. Has a worsening cough with nasal congestion and postnasal drip. She likes allergies going to the spring now. Moderate severity. Has been using [id number] antihistamines with partial improvement of the symptoms. Although his expensive. The patient also continues to have some degree of daytime drowsiness. Her Pedro scores 8/24. She does have snoring. The patient did have an in-lab sleep study which we did review. No evidence of any significant sleep apnea. Oxygen stable. She did have some snoring. Although not pathological. She can consider talking to her dentist about an oral appliance. In addition to that she can try positional therapy sleeping on her side. She also had a CT scan of the chest which we personally reviewed. Does have some mild emphysema. No evidence of any interstitial lung disease which is reassuring. She does have small pulmonary nodules that will need follow-up. Ideally in a year's time. 08/06/2024 the patient is here for pulmonary follow-up visit. Overall she is doing better. She denies any significant respiratory complaints. She does have dyspnea on exertion. Mild in severity. Denies any wheezing or chest tightness. She did undergo CT scan of the chest that I personally reviewed with her. No evidence of any interstitial lung disease. Minimal emphysema. And has small pulmonary nodules have not changed from last year. She does have significant calcifications of the coronary arteries. She is taking cholesterol medications. She is wondering about if that calcification is causing any significant blockage to the coronary arteries. Explained to her that the calcium that we see is usually due to hard plaque and usually that does not cause significant concerns for acute blockages. Although if she does continue to have symptoms and she needs to have that further address she can talk to her general studies program chair about assessing a CT angio of the coronary arteries are better address his that. [facility] Medical History Chronic allergic rhinitis CAD (coronary artery disease) ILD (interstitial lung disease) Palpitations Pulmonary nodule Social History Patient Tobacco Use Status: Former Tobacco user Tobacco use type: Cigarette Years Smoked: 20 Years Review of Systems Const Denies chills, Denies fatigue, Denies fever(s), Denies weight gain and Denies weight loss Eyes Reports no additional complaints ENT Denies dizziness Card Denies chest pain, Denies leg edema, Denies lightheadedness, Denies palpitations, Reports dyspnea on exertion, Denies orthopnea and Denies other Resp Reports cough, Reports dyspnea on exertion and Denies wheezing GI Denies hematochezia and Denies change in stool character Musc Denies abnormal gait, Denies muscle weakness, Denies numbness, Denies radiating pain into limb and Denies tingling Skin/Breast Denies rash Neuro Denies abnormal gait, Denies dizziness, Denies numbness and Denies tingling Endo Denies fatigue and Denies palpitations Osvaldo/Lymph Denies easy bruising and Denies lymphadenopathy Aller/Immun Denies wheezing Physical Exam Vital Signs: Last Vital Signs Pulse 70 08/06/24 12:54 BP 134/62 08/06/24 12:54 Pulse Ox 97 08/06/24 12:54 Oxygen Delivery Method Room Air 08/06/24 12:54 BMI result Body Mass Index 28.5 Const General: comfortable HEENT Head: Yes normocephalic Neck Neck: Yes supple Chest Chest palpation & inspection: normal inspection of the chest Resp Effort & Inspection: normal respiratory effort Auscultation: clear to auscultation bilaterally Cardio Heart sounds: S1 normal heart sound present and S2 normal heart sound present GI Palpation (GI): Soft to palpation Skin General skin exam: no rashes or lesions noted Extrem General: Yes no clubbing, cyanosis or edema Assessment & Plan Assessment & Plan (1) Pulmonary nodule: Comment: high risk due to smoking history Code(s): R91.1 - Solitary pulmonary nodule Category: Medical (2) Palpitations: Code(s): R00.2 - Palpitations Category: Medical (3) ILD (interstitial lung disease): Comment: CT chest is reassuring Code(s): J84.9 - Interstitial pulmonary disease, unspecified Category: Medical (4) Chronic allergic rhinitis: Code(s): J30.9 - Allergic rhinitis, unspecified Category: Medical Plan Repeat CT chest 1 yr continue Zara fluticasone nasal sray cardiac work up for the significant coronary calcifications F/U 12 months Orders: Orders CT chest wo IV con 1 Year R91.1 - Solitary pulmonary nodule Coding Level of Care Code Est Pt Level 4 (18532) Diagnoses Pulmonary nodule R91.1 Palpitations R00.2 ILD (interstitial lung disease) J84.9 Chronic allergic rhinitis J30.9 Time Spent (min) 17
--- OUTSIDE RECORDS SUMMARY | 2024-08-06 13:31 | XMS_ITS | Patient Health Record ---
Author Organization [facility] Address [address] [place] [address] Care Team Providers Care Training And Development Manager Name Role Phone Ketan PRINCE, [facility] Primary Care Provide r Unavailable Black, Charmaine Unavailable [phone] Allergies Allergen (clinical drug ingredient) Drug/Non Drug [...] Status Risk Notes Problem Acquired hallux valgus (29048361) Hallux valgus (acquired), left foot (M20.12) Active confirmed Problem Acquired hallux valgus (99838003) Hallux valgus (acquired), right foot (M20.11) Active confirmed Problem Acquired hammer toe of right foot (5782401542976 105) Other hammer toe(s) (acquired), right foot (M20.41) Active confirmed Problem Acquired hammer toe of left foot (5557365138397 103) Other hammer toe(s) (acquired), left foot (M20.42) Active confirmed Plan Of Treatment Pending Test Test Name Order Date [id number] Destruction, 1-14 09/18/2020 78166- Removal of Foreign Body, Subcut 0 09/18/2020 Insurance Providers Payer Name Payer Address Payer Phone Subscriber Number Group Number Insured Name Patient Relationship to Insured Coverage Start Date Coverage End Date [employer] Medicare Preferred [address] [place] [address] [id number] Ginger Stephens Self - patient is the insured Medical (General) History Medical History History ICD Code Back,Hip,and Knee pain Cataracts High blood pressure Osteoporosis Measles Surgical History Surgery Date(Month/Year) gall bladder 1979 section 1977,
--- OUTSIDE RECORDS SUMMARY | 2024-08-06 13:31 | XMS_ITS | Clinical Summary ---
Author Organization 175 [facility] Address [address] [place] [address] Phone Care Team Providers Care Tool Grinder Operator External Name Role Phone Vivien Aceves MD Primary [...] cholesterol 03/24/2024 Osteoporosis 03/24/2024 [place] [place] [facility] 03/24/2024 HTN (hypertension) 10/09/2022 Overview (03/24/2024): med managed M[place] [place] [facility] 10/09/2022 Overview (03/24/2024): noted on imaging for w/u of double vision - scheduled ENDOSCOPIC RESECTION ADENOMA PITUITARY, FAT GRAFTING with Dr Elver Wayne and Dr Hasmukh Orosco on 10/22/22. GERD (gastroesophageal reflux disease) Overview (03/24/2024): on ppi HLD (hyperlipidemia) 10/09/2022 Overview (03/24/2024): on statin Encounters Date Type Department Care Team Description 08/02/2024 Telephone Orthopedic Surgery [facility] 175 [facility] [address] [place] [address] Nayla Cardoso 07/22/2024 10:30 AM EDT Office Visit Orthopedic Surgery [facility] 250 175 [facility] [address] [place] [address] Huong Davalos NP Primary osteoarthritis of left hip (Primary Dx); Tendinopathy of left gluteus medius; Loose body in hip joint, left from Last 3 Months Surgical History Surgery Date Site/Laterality Comments TONSILLECTOMY ADENOIDECTOMY, BILATERAL MYRINGOTOMY AND TUBES PROCEDURE: MS TONSILLECTOMY & ADENOIDECTOMY <AGE 10 APPENDECTOMY PROCEDURE: MS APPENDECTOMY CHOLECYSTECTOMY PROCEDURE: MS LAPAROSCOPY SURG CHOLECYSTECTOMY Medical History Medical History [...] - - Weight 66.2 kg (146 lb) 07/22/2024 10:28 AM EDT Height 152.4 cm (5') 07/22/2024 10:28 AM EDT Body Mass Index 28.51 07/22/2024 10:28 AM EDT Plan of Treatment Upcoming Encounters Date Type Department Care Team ([facility] st Contact Info) Description 08/09/2024 4:00 PM EDT Procedure visit Orthopedic Surgery [facility] 160 175 [facility] 160 [place] [address] An Ward MD 175 [facility] 160 [place] [address] 09/22/2024 1:30 PM EDT Office Visit Orthopedic [facility] [address] [address] Huong Davalos NP [address] [address] Health Maintenance Due Date Last Done Comments [...] age to complete this topic Meningococcal B Vaccine Aged Out No l onger eligible based on patient's age to complete this topic RSV Immunization Patients Under 20 months Aged Out No longer eligible based on patient's age to complete this topic Varicella Vaccines Aged Out No longer eligible based on patient's age to complete this topic Insurance [employer] Care Teams Tool Grinder Operator External Relationship Specialty Start Date End Date Vivien Aceves MD [address] [place], [place] [address] PCP - General Internal Medicine 10/10/20
--- OUTSIDE RECORDS SUMMARY | 2024-08-06 13:31 | XMS_ITS | Encounter Summary ---
Author Organization [facility] Address [address] [place] [address] Care Team Providers Care Television Installer Name Role Phone Vivien Aceves MD Primary Care Provide r Encounter Details Date Type Department Care Team (Late st Contact Info) Description 08/02/2024 Telephone Orthopedic Surgery - [place] 175 [facility] [address] [place] [address] Nayla Cardoso Social History Tobacco Use Types Packs/Day Years [...] as of this encounter Progress Notes * Jenna Rahman MA - 08/04/2024 9:48 AM EDT The patient was called and given appt for 08/09/24 at 4:00pm. * Jenna Rahman MA - 08/02/2024 11:04 AM EDT L/m to call office. * An Ward MD - 08/02/2024 10:56 AM EDT Can you please overbook her mMon the at 4pm. That is soonest I can see her as I am away at a conference the rest of this week. * Nayla Cardoso - 08/02/2024 9:05 AM EDT Good morning, I spoke with the patient this morning, she was calling in to see if Dr. Ward has a sooner visit for her hip injection. The patient stated that she is in a lot of pain and was hoping that Huong would be able to call in a prescription for 600mg Ibuprofen to her pharmacy. -Nayla documented in this encounter Plan of Treatment Upcoming Encounters Date Type Department Care Team (Late st Contact Info) Description 08/09/2024 4:00 PM EDT Procedure visit Orthopedic Surgery [facility] 160 175 [facility] 160 [place] [address] An Ward MD [address] [address] 09/22/2024 1:30 PM EDT Office Visit Orthopedic Surgery [facility] 250 175 [facility] 250 [place] [address] Huogn Davalos NP [address] [address] documented as of this encounter Visit Diagnoses Not on filedocumented in this encounter Care Teams Television Installer Relationship Specialty Start Date End Date Vivien Aceves MD [address] [place] [address] PCP - General Internal Medicine 10/10/20 documented as of this encounter
== END 2024-08-06 13:15 | disposition home or self-care (01) ==
LOC: HO.HPS 12:52
PROVIDERS: PCP Internal Medicine; Visit Provider Hospitalist
DX: R91.1 Solitary pulmonary nodule (principal); R00.2 Palpitations; J84.9 Interstitial pulmonary disease, unspecified; J30.9 Allergic rhinitis, unspecified
CPT/HCPCS: 99214

== ENCOUNTER → 2024-08-06 12:51 | Outpatient (BNVA) | payer MEDICARE, SELFPAY | PROVIDERS: PCP Internal Medicine; Visit Provider Hospitalist | DX: J84.9 Interstitial pulmonary disease, unspecified (principal); J30.9 Allergic rhinitis, unspecified; R91.1 Solitary pulmonary nodule; R00.2 Palpitations | CPT/HCPCS: 99212 ==

== ENCOUNTER → 2025-03-07 08:28 | Outpatient (REF) | payer MEDICARE, SELFPAY ==
--- NOTE | ~2025-03-07 | NM_ITS ---
EXERCISE MYOCARDIAL PERFUSION STUDY INDICATION: Preoperative cardiac evaluation TECHNIQUE: The patient was brought in for an exercise perfusion study on 03/07/2025. Patient performed exercise as per Kumar protocol and was injected 25 mCi of sestamibi once target heart rate was achieved. Images were obtained using the SPECT gamma camera interlaced with the gating device. Images were obtained in supine position. Resting perfusion study was performed on 03/08/2025. Patient was administered 25 mCi of sestamibi intravenously at rest. Images were then obtained in supine position. Total DLP 110 mGy-cm. Images were processed with the software and compared side to side in short axis, horizontal long axis and vertical long axis views. FINDINGS: Raw aquisition reviewed. The stress perfusion study showed mildly diminished tracer uptake in the distal part of inferolateral wall. There is improvement with CT attenuation correction suggestive of diaphragmatic attenuation artifact. The gated study shows normal LV systolic function with calculated LVEF of 66%. LV cavity is normal in size. The gated study shows normal wall thickening and contraction of segments. Resting study shows diminished tracer uptake in the distal part of inferior wall. There is improvement with CT attenuation correction suggestive of diaphragmatic attenuation artifact. Gating at rest reveals normal wall motion with ejection fraction at 69%. The findings are consistent with no clear reversible defects. Fixed inferior/inferolateral defect suggestive of diaphragmatic attenuation artifact. NM/NM cardiolite stress test IMPRESSION: 1. Myocardial perfusion imaging study shows no clear evidence of ischemia or infarction. 2. Gated LVEF is 66% during stress and 69% during rest. 3. Transient ischemic dilatation not present. EKG component of the test reported separately. Electronically signed by: Tanner Fox MD 03/08/2025 05:22 PM [facility]
--- NOTE | 2025-03-07 08:40 | CA_ITS ---
Acquisition Time: 2025-03-07 09:18:56 Total Exercise Time: 00:05:25 Test Indications: PREOP Medications: Protocol: KEVIN Max HR: 130 BPM 90% of Pred: 144 BPM Max BP: 160/82 mmHG Max Work Load: 4.6 METS Exercise stress test with exercise 5 mins 25 secs of Kevin Protocol held at Stage 1, achieving 88% MPHR, with reports of SOB, no chest pain, with isolated PVCs, with normotensive response to exercise. Without any EKG changes meeting criteria for ischemia. In recovery, breathing returned to baseline. Nuclear images pending. Test reviewed with Dr. Russell. Referred By: Cal Farooq Electronically Signed By: Kyree Colin
--- OUTSIDE RECORDS SUMMARY | 2025-03-07 08:41 | XMS_ITS | Encounter Summary ---
Author Organization [facility] Address [address] [place] [address] Phone Care Team Providers Care Certified Scrub Tech Name Role Phone Vivien Aceves MD Primary Care Provide r Encounter Details Date Type Department Care Team (Late st Contact Info) Description 09/16/[address], [facility] [place] [address] [facility], [address] [place] [address] Social History Tobacco Use Types Packs/Day Years Used Date Smoking Tobacco: Never Smokeless Tobacco: Never Education Answer Date Recorded Are you interested in more education? Not on desean e 09/03/2022 Are you concerned about learning? Not on file 09/03/2022 No 09/03/2022 No 09/03/2022 Digital Access Answer Date Recorded No 09/03/2022 No 09/03/2022 Reliable internet access at home? Not on file 09/03/2022 Device with a working camera? Not on file Comments Unknown Sex and Gender Information Value Date Recorded Sex Assigned at Female 09/03/2022 12:41 PM EDT Legal Sex Female 12:27 PM EDT Gender Identity Female 09/03/2022 12:41 PM EDT Sexual Orientation Straight 09/03/2022 12 :41 PM EDT documented as of this encounter Plan of Treatment Not on file documented as of this encounter Visit Diagnoses Not on filedocumented in this encounter Care Teams Certified Scrub Tech Relationship Specialty Start Date End Date Vivien Aceves MD [address] [place] [address] PCP - General Internal Medicine 09/03/22 documented as of this encounter Additional Source Comments The information contained in this document represents components of the legal health record. It is not the complete legal health record.[facility]
--- OUTSIDE RECORDS SUMMARY | 2025-03-07 08:41 | XMS_ITS | Patient Health Record ---
Author Organization [facility] Address [address] [place] [address] Care Team Providers Care Supervisor Drapery Hanging Name Role Phone Ketan PRINCE, [facility] Primary Care Provide r Unavailable Black, Charmaine Unavailable [phone] Allergies Allergen (clinical drug ingredient) Drug/Non Drug Allergy documented on EMR Reaction Allergy Type Onset Date Status sulfamethoxazole / trimethoprim Bactrim Unknown Drug Allergy Active codeine Codeine Unknown Drug Allergy Active Reason For Referral No Information Medications Medication SIG (Take, Route, Frequency, Duration) Notes Start Date End Date Status Spironolactone 50 MG 1 tablet Orally Onc e a day; Duration: 30 day(s) Active Verapamil HCl ER 240 MG 1 tablet Orally Once a day; Duration: 30 day(s) Active Antibiotic UTI Active Caltrate 600+D3 600-800 MG-UNIT 1 tablet with a meal Orally Once a day; Duration: 30 day(s) Active Alendronate Sodium 70 MG 1 tablet 30 min utes before the first food, beverage or medicine of the day with plain water Orally; Duration: 30 day(s) Active Atorvastatin Calcium 20 MG 1 tablet Oral ly Once a day; Duration: 30 day(s) Active Omeprazole 20 MG 1 capsule 30 minutes before morning meal Orally Once a day; Duration: 30 day(s) Active Immunizations Vaccine Route Administration [...] Status Risk Notes Problem Acquired hallux valgus (24279189) Hallux valgus (acquired), left foot (M20.12) Active confirmed Problem Acquired hallux valgus (24693160) Hallux valgus (acquired), right foot (M20.11) Active confirmed Problem Acquired hammer toe of right foot (8813185398009 105) Other hammer toe(s) (acquired), right foot (M20.41) Active confirmed Problem Acquired hammer toe of left foot (8443090375006 103) Other hammer toe(s) (acquired), left foot (M20.42) Active confirmed Plan Of Treatment Pending Test Test Name Order Date [id number] Destruction, 1-14 09/18/2020 11542- Removal of Foreign Body, Subcut 0 09/18/2020 Insurance Providers Payer Name Payer Address Payer Phone Subscriber Number Group Number Insured Name Patient Relationship to Insured Coverage Start Date Coverage End Date [employer] Medicare Preferred [address] [place] [address] [id number] Ginger Stephens Self - patient is the insured Medical (General) History Medical History History ICD Code Back,Hip,and Knee pain Cataracts High blood pressure Osteoporosis Measles Surgical History Surgery Date(Month/Year) gall bladder 1979 section 1977,
--- OUTSIDE RECORDS SUMMARY | 2025-03-07 08:41 | XMS_ITS | Encounter Summary ---
Author Organization [facility] Address [address] [employer] [facility] [address] [place] [address] Phone Care Team Providers Care Calliope Player Name Role Phone Vivien Aceves MD Primary Care Provide r Encounter Details Date Type Department Care Team (Late st Contact Info) Description 10/22/2022 Procedure Pass [facility] Periop [address] [place] [address] Social History Tobacco Use Types Packs/Day Years Used Date Smoking Tobacco: Never Smokeless Tobacco: Never Alcohol Use Standard Drinks/Week Comments Yes 0 (1 standard drink = 0.6 oz pur e alcohol) 1-2 beer daily Education Answer Date Recorded Are you interested in more education? Not on desean e 09/03/2022 Are you concerned about learning? Not on file 09/03/2022 No 09/03/2022 No 09/03/2022 Digital Access Answer Date Recorded No 09/03/2022 No 09/03/2022 Reliable internet access at home? Not on file 09/03/2022 Device with a working camera? Not on file Intimate Partner Violence Answer Date R ecorded Are you denied basic needs s uch as food, clothing, or medical care? No 10/22/2022 In the past 12 months have y ou been in a relationship with a person who hurts, threatens, or tries to control you? No 10/22/2022 Are you denied basic needs s uch as food, clothing, or medical care? No 10/22/2022 In the past 12 months have y ou been in a relationship with a person who hurts, threatens, or tries to control you? No 10/22/2022 Comments No Sex and Gender Information Value Date Recorded Sex Assigned at Female 09/03/2022 12:41 PM EDT Legal Sex Female 12:27 PM EDT Gender Identity Female 09/03/2022 12:41 PM EDT Sexual Orientation Straight 09/03/2022 12 :41 PM EDT documented as of this encounter Functional Status * Calculated C-SSRS Risk Score (Lifetime/Recent) Answer Date of Assessment Author No Risk Indicated 10/22/2022 9:04 PM EDT Rosy Hess RN * Pierce Suicide Severity Rating Scale (Screener/Recent Self-Report) Question Answer Date of Assessment Author 1. Wish to be (Past 1 Month) No 023 9:04 PM EDT Rosy Hess RN 2. Non-Specific Active Suici alberto Thoughts (Past 1 Month) No 10/22/2022 9:04 PM EDT Rosy Hess RN 6. Suicidal Behavior (Lifetime) No 9:04 PM EDT Rosy Hess RN documented as of this encounter Plan of Treatment Not on file documented as of this encounter Visit Diagnoses Not on filedocumented in this encounter Care Teams Calliope Player Relationship Specialty Start Date End Date Vivien Aceves MD [address] [place] [id number] PCP - General Internal Medicine 09/03/22 documented as of this encounter Additional Source Comments The information contained in this document represents components of the legal health record. It is not the complete legal health record.[facility]
--- OUTSIDE RECORDS SUMMARY | 2025-03-07 08:41 | XMS_ITS | Encounter Summary ---
Author Organization [facility] Address [address] [facility] [address] [place] [address] Phone Care Team Providers Care Director Of Strategic Programs Name Role Phone Vivien Aceves MD Primary Care Provide r Encounter Details Date Type Department Care Team (Late st Contact Info) Description 02/07/2025 Orders Only [facility] Department of Neurosurgery [address] [place] [address] ProviderGet MD [facility] [place] [address] Social History Tobacco Use Types Packs/Day Years [...] on file documented as of this encounter Procedures Procedure Name Priority Date/Time Associated Diagnosis Comments OUTSIDE LAB Routine 02/07/2025 9:03 AM EDT documented in this encounter Results * Outside Lab (02/07/2025 9:03 AM EDT) us Historical Provider LAB BLOOD BKR ORDERABLES Final Result documented in this encounter Visit Diagnoses Not on filedocumented in this encounter Care Teams Director Of Strategic Programs Relationship Specialty Start Date End Date Vivien Aceves MD [address] [place] [address] PCP - General Internal Medicine 09/03/22 documented as of this encounter Additional Source Comments The information contained in this document represents components of the legal health record. It is not the complete legal health record.[facility]
--- OUTSIDE RECORDS SUMMARY | 2025-03-07 08:41 | XMS_ITS | Encounter Summary ---
Author Organization [facility] Address [address] [place] [address] Care Team Providers Care Rehab Specialist Name Role Phone Vivien Aceves MD Primary Care Provide r Encounter Details Date Type Department Care Team (Late st Contact Info) Description 09/14/2024 Lab Requisition [facility] - Main Lab [address] [facility] [place] [address] Rancho Vu MD [address] [facility] [address] [place] [address] Urinary tract infection, site not specified Social History Tobacco Use Types Packs/Day Years [...] on file documented as of this encounter Plan of Treatment Not on file documented as of this encounter Procedures Procedure Name Priority Date/Time Associated Diagnosis Comments CULTURE URINE Routine 09/14/2024 1:30 PM EDT Urinary tract infection, site not specified documented in this encounter Results * Culture urine (09/14/2024 1:30 PM EDT) Culture, Urine 10,000-49,000 CFU/mL Mixed bacterial morphotypes present suggestive of possible contamination during collection. Suggest appropriate recollection if clinically indicated. 09/16/2024 12:14 PM EDT [facility] ([facility]) [facility] Urine Urine specimen obtained by clean catch procedure / Unknown 09/14/2024 1:30 PM EDT 09/14/2024 6:25 PM EDT Rancho Vu MD LAB MICROBIOLOGY - GENERA L ORDERABLES Final Result [facility] ([facility]) [facility] [address] [place] [address], documented in this encounter Visit Diagnoses Diagnosis Urinary tract infection, site not specified documented in this encounter Additional Health Concerns Infection Onset Date Last Indicated Resolved Time ESBL 10/22/2024 10/22/2024 documented as of this encounter Care Teams Rehab Specialist Relationship Specialty Start Date End Date Vivien Aceves MD [address] [place] [address] [place] PCP - General Internal Medicine 10/10/20 documented as of this encounter
--- OUTSIDE RECORDS SUMMARY | 2025-03-07 08:41 | XMS_ITS | Clinical Summary ---
Author Organization [facility] Address [address] [employer] [address] [address] Phone Care Team Providers Care Senior Tax Accountant Name Role Phone Vivien Aceves MD Primary Care Provide r Allergies Active Allergy Reactions Criticality Noted Date Comments Codeine GI Upset 10/09/2022 Lisinopril 10/09/2022 Oxycodone-Acetaminophen GI Upset 09/16/2022 Vomiting Sulfa (Sulfonamide Antibiotics) Hives 03/14 Medications amLODIPine (NORVASC) 5 MG tablet Take 5 mg by mouth daily. 2 Active atorvastatin (LIPITOR) 20 MG tablet 40 mg 2 Active spironolactone (ALDACTONE) 50 MG tablet Take 50 mg by mouth daily. 3 Active omeprazole (PRILOSEC) 20 MG capsule Take 20 mg by mouth as needed. 2 Active calcium carbonate (CALCIUM 600 ORAL) daily. Active propylene glycoL (SYSTANE BALANCE) 0.6 % Drop Place 1 drop into each eye as needed (dry eyes). Active aspirin 81 MG EC tablet Take 1 tablet (81 mg total) by mouth daily. 3 Active ALPRAZolam (XANAX) 0.25 MG tabletIndication s:Meningioma Take 1 tablet (0.25 mg) by mouth 90 minutes prior to MRI. If needed, take 1 tablet (0.25 mg) by mouth 30 minutes prior to MRI. 2 tablet 3 Active Additional Information Patient not taking.Reported on 05/11/2024 calcium carbonate-vitami n D3 1,500 mg (600 mg elemental)-800 units Tab Take 600 mg by mouth. Active denosumab (PROLIA) 60 mg/mL Syrg subcutaneous syringe 4 Active ezetimibe (ZETIA) 10 mg tablet Take 10 mg by mouth daily. Active cyanocobalamin, vitamin B-12, 100 MCG tablet Take 100 mcg by mouth daily. Active Active Problems Problem Noted Date Diagnosed Date Meningioma 10/09/2022 Overview (10/09/2022): noted on imaging for w/u of double vision - scheduled ENDOSCOPIC RESECTION ADENOMA PITUITARY, FAT GRAFTING with Dr Elver Wayne and Dr Hasmukh Orosco on 10/22/22. HTN (hypertension) 10/09/2022 Overview (10/09/2022): med managed HLD (hyperlipidemia) 10/09/2022 Overview (10/09/2022): on statin GERD (gastroesophageal reflux disease) Overview (10/09/2022): on ppi Encounters Date Type Department Care Team Description 02/28/2025 9:00 AM EST Telemedicine - audio only [facility] Pituitary/Neuroend ocrine Center in Neurosurgery [address] [place] [address] Bettie Hernandez MD Meningioma (Primary Dx); Diplopia 02/07/2025 Orders Only [facility] Department of Neurosurgery [address] [place] [address] Get Bustos MD 12/29/2024 Orders Only [facility] Department of Neurosurgery [address] [place] [address] Alma Rosa Ramírez Meningioma (Primary Dx) from Last 3 Months Immunizations Immunization Administration Dates Next Due Influenza High-Dose Quadrivalent Preservative Fr ee IM 01/21/2022 Influenza High-Dose Trivalent Preservative Free IM 02/17/2019,12/30/2016 Influenza Quadrivalent Adjuvanted Preservative F ree IM 02/01/2021 Influenza Quadrivalent Preservative Free IM 12/13 Influenza, whole 02/17/2019,01/20/2018 Pneumococcal conjugate PCV13 12/20/2014 Tdap 10/05/2020 Social History Tobacco Use Types Packs/Day Years Used Date Smoking Tobacco: Never Smokeless Tobacco: Never Tobacco Cessation:Counseling Given: Not Answered Alcohol Use Standard Drinks/Week Comments Yes 0 [...] Orientation Straight 09/03/2022 12 :41 PM EDT Last Filed Vital Signs Vital Sign Reading Time Taken Comments Blood Pressure 124/59 05/11/2024 2:17 PM EST Pulse 75 05/11/2024 2:17 PM EST Temperature 37.3 C (99.1 F) 05/11/2024 2:17 PM EST Respiratory Rate 16 05/11/2024 2:17 PM EST Oxygen Saturation 97% 05/11/2024 2:17 PM EST Inhaled Oxygen Concentration - - Weight 68.5 kg (151 lb 1.6 oz) 05/11/2024 2:17 P M EST Height 152.4 cm (5') 05/11/2024 2:17 PM EST Body Mass Index 29.51 05/11/2024 2:17 PM EST Plan of Treatment Health Maintenance Due Date Last Done Comments LIPID PANEL 1950 HEPATITIS C SCREENING 1966 ZOSTER VACCINES (1 of 2) 1998 OSTEOPOROSIS SCREENING INITIAL (ONE-TIME) 2013 PNEUMOCOCCAL VACCINES (50+ years) (2 of 2 - PCV20 or PCV21) 12/21/2015 12/20/2014 POTASSIUM LEVEL 11/26/2023 11/25/2022, 10/13, 10/23/2022, Additional history exists DEPRESSION SCREENING 09/26/2024 09/27/2023 BLOOD PRESSURE 11/08/2024 05/11/2024 INFLUENZA VACCINE (#1) 2024 , 12/30/2022, 01/21/2022, Additional history exists COVID-19 VACCINE ( season) 2024 03/03/2021, 07/14/2020, 06/15/2020 Adult Td,Tdap Booster 10/05/2030 10/05/2020 RSV VACCINE Completed 02/07/2023 SMOKING STATUS SCREENING (Once After 26 Yrs) Completed 02/28/2025 HEPATITIS A VACCINES Aged Out No long er eligible based on patient's age to complete this topic HIB VACCINES Aged Out No longer eligi ble based on patient's age to complete this topic IPV VACCINES Aged Out No longer eligi ble based on patient's age to complete this topic MENINGOCOCCAL VACCINES (ACWY) Aged Out No longer eligible based on patient's age to complete this topic MENINGOCOCCAL VACCINES (B) Aged Out N o longer eligible based on patient's age to complete this topic Medical Devices Not on file Procedures Procedure Name Priority Date/Time Associated Diagnosis Comments OUTSIDE LAB Routine 02/07/2025 9:03 AM EDT MRI BRAIN Routine 12/29/2024 10:49 AM EDT Meningioma BASIC METABOLIC PANEL (BMP) Routine 11/25/2022 10:59 AM EDT Meningioma from Last 3 Months or Most Recently Relevant to Health Maintenance Results * Outside Lab (02/07/2025 9:03 AM EDT) Historical Provider LAB BLOOD BKR ORDERABLES Final Result * Basic metabolic panel (11/25/2022 10:59 AM EDT) SODIUM 137 133 - 146 mmol/L [facility] CHLORIDE 99 96 - 108 mmol/L [facility] POTASSIUM 4.4 3.3 - 5.1 mmol/L [facility] CO2 26 21 - 35 mmol/L [facility] BUN 13 6 - 19 mg/dL [facility] CREATININE 0.80 0.5 - 1.5 mg/dL [facility] GLUCOSE 92 70 - 99 mg/dL [facility] CALCIUM 10.0 8.4 - 10.3 mg/dL [facility] EGFR 77 >59 mL/min/1.7 3m2 [facility] Comment:Estimated glomerular filtration rate calculated using the CKD-EPI refit equation. ANION GAP 16 10 - 20 mmol/L [facility] Blood 11/25/2022 10:5 9 AM EDT 11/25/2022 11:11 AM EDT Chucho Ibrahim PA-C LAB BLOOD BKR ORDERABLES F inal Result [address] [address] from Last 3 Months or Most Recently Relevant to Health Maintenance Insurance [employer]PL[employer] RE[employer] Advance Directives For more information, please contact: [phone] (9AM - 5PM [facility], Friday-Friday) Documents on File Type Date Recorded Patient Cryptographic Clerk Expl anation Healthcare Proxy 10/28/2022 2:48 PM Care Teams Senior Tax Accountant Relationship Specialty Start Date End Date Vivien Aceves MD [address] [place] [id number] PCP - General Internal Medicine 09/03/22 Additional Source Comments The information contained in this document represents components of the legal health record. It is not the complete legal health record.[facility]
--- OUTSIDE RECORDS SUMMARY | 2025-03-07 08:41 | XMS_ITS | Clinical Summary ---
Author Organization [address] [facility] Address [address] [place] [address] Phone Care Team Providers Care Psychometric Examiner Name Role Phone Vivien Aceves MD Primary [...] cholesterol 03/24/2024 Osteoporosis 03/24/2024 Brain tumor (benign) ([place] V24, [place] V28) 03/24/2024 HTN (hypertension) 10/09/2022 Overview (03/24/2024): med managed Meningioma ([place] V24, [place] V28) 10/09/2022 Overview (03/24/2024): noted on imaging for w/u of double vision - scheduled ENDOSCOPIC RESECTION ADENOMA PITUITARY, FAT GRAFTING with Dr Elver Wayne and Dr Hasmukh Orosco on 10/22/22. GERD (gastroesophageal reflux disease) Overview (03/24/2024): on ppi HLD (hyperlipidemia) 10/09/2022 Overview (03/24/2024): on statin Surgical History Surgery Date Site/Laterality Comments TONSILLECTOMY ADENOIDECTOMY, BILATERAL MYRINGOTOMY AND TUBES PROCEDURE: [place] TONSILLECTOMY & ADENOIDECTOMY <AGE 12 APPENDECTOMY PROCEDURE: [place] APPENDECTOMY CHOLECYSTECTOMY PROCEDURE: [place] LAPAROSCOPY SURG CHOLECYSTECTOMY Medical History Medical History [...] - - Weight 66.2 kg (146 lb) 08/09/2024 3:48 PM EDT Height 152.4 cm (5') 08/09/2024 3:48 PM EDT Body Mass Index 28.51 08/09/2024 3:48 PM EDT Plan of Treatment Health Maintenance Due Date Last Done Comments Diabetes: Annual GFR (Glomerular Filtration Rate) 1948 Diabetes: Annual Foot Exam 1958 Zoster Vaccines (1 of 2) 1998 Pneumococcal Vaccine: 50+ Years (2 of 2 - PCV20 or PCV21) 12/21/2015 12/20/2014 Cholesterol Screening (Lipid Panel) 03/12/2022 Falls Risk Assessment 03/12/2022 Hepatitis C Screening 03/12/2022 Medicare Annual Wellness Visit 03/12/2022 Osteoporosis Screening (Bone Density Screening) 03/12/2022 Social Influencers of Health Screening 03/12/2022 Diabetes: Annual Urine Albumin-Creatinine Ratio (uACR) 03/24/2024 Diabetes: Blood Sugar Control Test (HGBA1C) 03/24/2024 Hypertension/CHF/CAD Annual BMP Blood Test 03/24/2024 Depression Screening 04/14/2024 COVID-19 Vaccine ( - season) 2024 03/03/2021, 07/14/2020, 06/15/2020 Influenza Vaccine (#1) 2024 , 12/30/2022, 01/21/2022, Additional history exists Diabetes: Annual Retina Eye Exam 05/17/2025 05/17/2024 DTaP,Tdap,and Td Vaccines (2 - Td or Tdap) 10/05/2030 10/05/2020 Breast Cancer Screening Discontinued 06/30/2018 RSV Immunization Adult Patients Completed 02/07/2023 HIB Vaccines Aged Out No longer eligi [...] on patient's age to complete this topic Additional Health Concerns Infection Onset Date Last Indicated ESBL 10/22/2024 10/22/2024 [place] [address] [employer] Care Teams Psychometric Examiner Relationship Specialty Start Date End Date Vivien Aceves MD [address] [place], [place] [address]arianne Corea [place] PCP - General Internal Medicine 10/10/20
--- OUTSIDE RECORDS SUMMARY | 2025-03-07 08:41 | XMS_ITS | Encounter Summary ---
Author Organization [facility] Address [address] [place] [address] Care Team Providers Care Drying Machine Operator Name Role Phone Vivien Aceves MD Primary Care Provide r Encounter Details Date Type Department Care Team (Late st Contact Info) Description 10/22/2024 Lab Requisition [facility] - Main Lab [address] [facility] [place] [address] Alexia Vela PA [address] [facility] [address] [place] [address] Urinary tract infection, site not specified Social [...] Date/Time Associated Diagnosis Comments CULTURE URINE Routine 10/22/2024 12:00 AM EDT Urinary tract infection, site not specified documented in this encounter Results * (ABNORMAL) Culture urine (10/22/2024 12:00 AM EDT) Culture, Urine 50,000-100,000 CFU/mL Escherichia coli ESBL(A) BRITTNEY 10/25/2024 7:54 AM EDT [facility] ([facility] [[email or web address] H[facility] LAB Comment: THIS ORGANISM IS POSITIVE FOR EXTENDED SPECTRUM BETA-LACTAMASE (ESBL). EXTENDED SPECTRUM BETA-LACTAMASE PRODUCING ORGANISMS DEMONSTRATE DECREASED ACTIVITY WITH PENICILLINS, CEPHALOSPORINS AND AZTREONAM. Edited result: Previously reported as Escherichia coli on 10/24/2024 at 1034 EDT. Urine Urine specimen obtained by clean catch procedure / Unknown 10/22/2024 10/22/2024 6:34 PM EDT Narrative [facility] ([facility] - 10/25/2024 7:54 AM EDT Additional colony types present in insignificant amounts. Organism Antibiotic Method Susceptibility Escherichia coli ESBL Amoxicillin/Clavulanate BRITTNEY >=32 ug/ml: Resistant Escherichia coli ESBL Ampicillin/Sulbactam BRITTNEY >=32 ug/ml: Resistant Escherichia coli ESBL Piperacillin/Tazobactam BRITTNEY 32 ug/ml: Resistant Escherichia coli ESBL Cefazolin (Urine) BRITTNEY >=32 ug/ml: Resistant Escherichia coli ESBL Cefoxitin BRITTNEY >=64 ug/ml: Resistant Escherichia coli ESBL Ceftazidime BRITTNEY >=32 ug/ml: Resistant Escherichia coli ESBL Ceftriaxone BRITTNEY >=64 ug/ml: Resistant Escherichia coli ESBL Cefepime BRITTNEY 2 ug/ml: Susceptible Escherichia coli ESBL Meropenem BRITTNEY <=0.25 ug/ml: Susceptible Escherichia coli ESBL Amikacin BRITTNEY 2 ug/ml: Susceptible Escherichia coli ESBL Gentamicin BRITTNEY <=1 ug/ml: Susceptible Escherichia coli ESBL Ciprofloxacin BRITTNEY <=0.06 ug/ml: Susceptible Escherichia coli ESBL Levofloxacin BRITTNEY <=0.12 ug/ml: Susceptible Escherichia coli ESBL Nitrofurantoin BRITTNEY 64 ug/ml: Intermediate Escherichia coli ESBL Trimethoprim/Sulfa methoxazol e BRITTNEY <=20 ug/ml: Susceptible [facility]ia [facility] LAB MICROBIOLOGY - GENERAL ORD ERABLES Final Result [facility] [address] [place] [address], documented in this encounter Visit Diagnoses Diagnosis Urinary tract infection, site not specified documented in this encounter Additional Health Concerns Infection Onset Date Last Indicated Resolved Time ESBL 10/22/2024 10/22/2024 documented as of this encounter Care Teams Drying Machine Operator Relationship Specialty Start Date End Date Vivien Aceves MD [address] [place], [place] [address]GERARD talamantes PCP - General Internal Medicine 10/10/20 documented as of this encounter
== END ==
LOC: HO.CARD 08:28
PROVIDERS: PCP Internal Medicine; Visit Provider Internal Medicine Cardiovascular Disease
DX: I25.10 Atherosclerotic heart disease of native coronary artery without angina pectoris (principal); Z01.818 Encounter for other preprocedural examination
CPT/HCPCS: 78452; 93017; A9500; J0280; J2785

== ENCOUNTER → 2025-03-07 08:40 | Outpatient (BNV) | payer MEDICARE, SELFPAY | PROVIDERS: PCP Internal Medicine | DX: I49.3 Ventricular premature depolarization (principal); R06.02 Shortness of breath | CPT/HCPCS: 78452; 93016; 93018 ==